=== PATIENT | female | born 1955 | race Caucasian/White ===

== ENCOUNTER 2017-05-22 23:23 | Emergency (ER) | payer BC, OTHER ==
[2017-05-22] MEDS ORDERED: CEFTRIAXONE SODIUM 1 GM ONE (23:46)
[2017-05-22] MEDS ORDERED: LIDOCAINE HCL-MPF 1% 2ML VIAL ONE (23:46)
[2017-05-22] MEDS ORDERED: AMOXICILLIN/POTASSIUM CLAV 875-125 TABLET PO ONE (23:47)
== END 2017-05-23 00:34 | disposition home or self-care (01) ==
LOC: EDH 23:23
DX: S61.451A Open bite of right hand, initial encounter (principal); L03.113 Cellulitis of right upper limb; Z72.0 Tobacco use; Z79.899 Other long term (current) drug therapy; W55.01XA Bitten by cat, initial encounter; Y93.89 Activity, other specified; Y92.098 Other place in other non-institutional residence as the place of occurrence of the external cause; Y99.8 Other external cause status
CPT/HCPCS: 73130; 96372; 99284; J0696; J3490

== ENCOUNTER 2017-05-23 21:13 | Emergency (ER) | payer BC ==
[2017-05-23] MEDS ORDERED: LIDOCAINE HCL 1% 20 ML VIAL ONE (21:49)
[2017-05-23] MEDS ORDERED: CEFTRIAXONE SODIUM 1 GM ONE (21:50)
== END 2017-05-23 22:09 | disposition home or self-care (01) ==
LOC: EDH 21:13
DX: S61.451D Open bite of right hand, subsequent encounter (principal); Z72.0 Tobacco use; W55.01XD Bitten by cat, subsequent encounter
CPT/HCPCS: 96372; 99283; J0696

== ENCOUNTER → 2017-11-08 | Outpatient (CLI) | payer BC | END | disposition home or self-care (01) | LOC: RAH 08:12 | PROVIDERS: ATTEND Family Medicine | DX: Z12.31 Encounter for screening mammogram for malignant neoplasm of breast (principal); I10 Essential (primary) hypertension; Z87.891 Personal history of nicotine dependence | CPT/HCPCS: 77067 ==

== ENCOUNTER → 2018-04-07 | Outpatient (CLI) | payer BC | END | disposition home or self-care (01) | LOC: RAH 07:35 | PROVIDERS: ATTEND Family Medicine | DX: R51 Headache (principal) | CPT/HCPCS: 70551 ==

== ENCOUNTER → 2018-07-28 | Outpatient (CLI) | payer BC | END | disposition home or self-care (01) | LOC: RAH 14:26 | PROVIDERS: ATTEND Family Medicine | DX: S09.90XA Unspecified injury of head, initial encounter (principal); X58.XXXA Exposure to other specified factors, initial encounter; Y93.89 Activity, other specified; Y92.89 Other specified places as the place of occurrence of the external cause; Y99.8 Other external cause status | CPT/HCPCS: 70450 ==

== ENCOUNTER 2022-06-26 06:52 | Day surgery (SDC) | payer MEDICARE ==
[2022-06-24 12:29] LABS: CRP QUANTITATIVE < 2.00 mg/L (0.00-9.0)
[2022-06-24 12:42] VITALS: BP 131/70
[2022-06-26] VITALS (19 sets, daily range): BP systolic 112–146; BP diastolic 54–97
[~2022-06-26] VITALS: Ht 167.6 cm; Wt 89.9 kg
[~2022-06-26 06:52] MED LIST: DOXY25TA55 PO; ESOM20CA39 PO; IBUP-2784 PO; NAPR1TAB28 PO; OLME5TAB29 PO; OXYM-30 NS
[2022-06-26] MEDS ORDERED: LACTATED RINGERS 1000ML 1,000 ML IV ONE (08:07)
[2022-06-26] MEDS ORDERED: CEFAZOLIN SODIUM 2 GM VIAL ONE (08:07)
[2022-06-26] MEDS ORDERED: MIDAZOLAM HCL 1 MG/ML 2ML VIAL ONE (10:14)
[2022-06-26] MEDS ORDERED: ROCURONIUM 10MG/1ML SYR 10 MG/ML ML ONE (10:14)
[2022-06-26] MEDS ORDERED: PROPOFOL 10 MG/ML 20ML VIAL IV ONE (10:14)
[2022-06-26] MEDS ORDERED: FENTANYL CITRATE PF 50 MCG/1 ML 2ML VIAL ONE ×2 (10:15→11:42)
[2022-06-26] MEDS ORDERED: ONDANSETRON 4MG INJ ONE (10:16)
[2022-06-26] MEDS ORDERED: BUPIVACAINE/PF 0.25% 30ML VIAL IJ ONE ×2 (10:33→11:03)
[2022-06-26] MEDS ORDERED: CEFAZOLIN SODIUM 2 GM VIAL IVPB ONE (10:44)
[2022-06-26] MEDS ORDERED: GLYCOPYRROLATE 1 MG/5 ML SYRINGE ONE (11:41)
[2022-06-26] MEDS ORDERED: NEOSTIGMINE 5MG/5ML SYR IV ONE (11:41)
[2022-06-26] MEDS ORDERED: ACET-2079 PO (12:04)
[2022-06-26] MEDS ORDERED: MORPHINE 2 MG SYG ONE ×2 (12:18→12:26)
== END 2022-06-26 14:30 | disposition home or self-care (01) ==
LOC: DAH 06:52
PROVIDERS: ATTEND Student in an Organized Health Care Education/Training Program
DX: M23.322 Other meniscus derangements, posterior horn of medial meniscus, left knee (principal); Z20.822 Contact with and (suspected) exposure to COVID-19; M17.2 Bilateral post-traumatic osteoarthritis of knee; M22.42 Chondromalacia patellae, left knee; I10 Essential (primary) hypertension; K21.9 Gastro-esophageal reflux disease without esophagitis; Z87.891 Personal history of nicotine dependence; Z82.49 Family history of ischemic heart disease and other diseases of the circulatory system; Z83.3 Family history of diabetes mellitus
CPT/HCPCS: 82040; 84134; 86140; 87426; 36415; 93005; 29881; 97161; 97116; A4663; A4649 ×3; J7120; J3010 ×2; J3490 ×3; J2710; J2250; J2704; J2405; J0690 ×2; A6223; A4215; A4223; A4222; A4221; A6450

== ENCOUNTER → 2023-07-20 | Outpatient (CLI) | payer OTHER ==
[~2023-07-20] MED LIST changes: +ACET-2079 PO; -NAPR1TAB28 PO
== END | disposition home or self-care (01) ==
LOC: RAH 11:06
PROVIDERS: ATTEND Family Medicine
DX: Z12.31 Encounter for screening mammogram for malignant neoplasm of breast (principal); R92.323 Mammographic fibroglandular density, bilateral breasts
CPT/HCPCS: 77067

== ENCOUNTER → 2024-01-24 | Outpatient (CLI) | payer OTHER ==
[~2024-01-24] MED LIST changes: -ESOM20CA39 PO; +ESOM20CA51 PO; +IOHEXOL-350 75 ML VIAL IV ONE
--- NOTE | 2024-01-24 11:09 | HMCIMG ---
CT ABDOMEN/PELVIS W/WO CONTRAS REASON: Exocrine pancreatic insufficiency COMPARISON: None. TECHNIQUE: Images are obtained from lung bases through the symphysis pubis before and after IV contrast, 75 cc Omnipaque [id number]. Oral contrast was administered as well. FINDINGS: Lung bases are clear. There is marked fatty infiltration of the liver. The liver does not appear enlarged.. There are normal-appearing kidneys.. Spleen appears normal. The pancreas is diffusely somewhat small but appears otherwise unremarkable, there is no focal masses or distention. The gallbladder appears normal as well. There is a small hiatal hernia. There is moderate sigmoid diverticulosis without evidence of diverticulitis. Bowel loops appear otherwise unremarkable. This includes normal appearance of the appendix There is no evidence of free fluid or intraperitoneal air. There are no focal fluid collections. Aorta and retroperitoneum appear normal as do pelvic soft tissue structures. The anterior abdominal wall is intact. Osseous structures appear unremarkable. IMPRESSION: 1. Moderate to marked fatty infiltration of the liver, the liver does not appear enlarged. 2. Small hiatal hernia. 3. Moderate to marked sigmoid diverticulosis with out evidence of acute diverticulitis. 4. Pancreas is diffusely somewhat small but no evidence of mass or ductal distention. CT was performed with one or more following dose reduction techniques: automated exposure control, adjustment of the mA and kv according to patient's size, or use of a iterative reconstruction technique.
== END | disposition home or self-care (01) ==
LOC: RAH 08:17
PROVIDERS: ATTEND Internal Medicine Gastroenterology
DX: K76.0 Fatty (change of) liver, not elsewhere classified (principal); K57.30 Diverticulosis of large intestine without perforation or abscess without bleeding; K44.9 Diaphragmatic hernia without obstruction or gangrene; K86.81 Exocrine pancreatic insufficiency
CPT/HCPCS: 74178; Q9967